=== PATIENT | female | born 1995 | race African-American/Black ===

== ENCOUNTER 2016-11-24 19:27 | Emergency (ER) | payer OTHER ==
[~2016-11-24] VITALS: Ht 160 cm; Wt 123.0 kg
[~2016-11-24 19:27] MED LIST: AMOXICILLIN500 MG PO; CYANOCOBALAM1000 MCG PO; ENDOCET 5-3251 EACH PO; ZITHROMAX Z-PA250 MG PO
[2016-11-24] MEDS ORDERED: REGLAN10 MG PO (23:02)
[2016-11-24] MEDS ORDERED: PERCOCET 5/31 TABLET PO (23:02)
[2016-11-24] MEDS ORDERED: TORADOL10 MG PO (23:02)
[2016-11-24 23:14] VITALS: BP 00/00
== END 2016-11-24 23:20 | disposition home or self-care (01) ==
LOC: EME 19:27
DX: G43.909 Migraine, unspecified, not intractable, without status migrainosus (principal); M54.5 Low back pain; S09.90XA Unspecified injury of head, initial encounter; W10.9XXA Fall (on) (from) unspecified stairs and steps, initial encounter
CPT/HCPCS: 70450; 72100; 99281; 99284

== ENCOUNTER 2017-02-10 19:56 | Emergency (ER) | payer OTHER ==
[~2017-02-10] VITALS: Ht 160 cm; Wt 126.7 kg
[~2017-02-10 19:56] MED LIST changes: +PERCOCET 5/31 TABLET PO; +REGLAN10 MG PO; +TORADOL10 MG PO
[2017-02-10] MEDS ORDERED: FIORICET 50-301 EACH PO (22:43)
[2017-02-10] MEDS ORDERED: ZOFRAN ODT4 MG PO (22:43)
[2017-02-10 22:46] VITALS: BP 144/87
== END 2017-02-10 22:49 | disposition home or self-care (01) ==
LOC: EME 19:56
DX: R51 Headache (principal); Z86.61 Personal history of infections of the central nervous system
CPT/HCPCS: 99281; 99285; J1885

== ENCOUNTER 2017-03-08 14:42 | Emergency (ER) | payer OTHER ==
[~2017-03-08] VITALS: Ht 160 cm; Wt 125.0 kg
[~2017-03-08 14:42] MED LIST changes: +FIORICET 50-301 EACH PO; +ZOFRAN ODT4 MG PO
[2017-03-08 15:10] VITALS: BP 125/82
[2017-03-08] MEDS ORDERED: MOTRIN600 MG PO (16:55)
== END 2017-03-08 17:11 | disposition home or self-care (01) ==
LOC: EME 14:42
DX: M71.332 Other bursal cyst, left wrist (principal)
CPT/HCPCS: 99281; 99284

== ENCOUNTER 2017-04-19 10:06 | Emergency (ER) | payer OTHER ==
[~2017-04-19] VITALS: Ht 160 cm; Wt 126.6 kg
[~2017-04-19 10:06] MED LIST changes: +MOTRIN600 MG PO
[2017-04-19 11:31] LABS: EOSINOPHIL (%) 4.8 % (0-5); EOSINOPHIL COUNT 0.3 K/uL (0-0.3); HEMATOCRIT 39.9 % (36.0-46.0); IMMATURE GRANULOCYTE (%) 0.3 % (0.0-0.7); INSTRUMENT ABS NEUTROPHIL CT 2.3 K/uL; LYMPHOCYTE COUNT 3.9 K/uL (1.0-2.8); MCHC 31.6 G/DL (30.0-36.0); MCV 85.6 FL (83-99); MEAN PLAT.VOLUME 10.8 uM^3 (9.5-12.4); MONOCYTE (%) 5.7 % (3-12); MONOCYTE COUNT 0.4 K/uL (0-0.8); NEUTROPHIL (%) 33.2 % (45-76); NEUTROPHIL COUNT 2.3 K/uL (1.8-6.4); PLATELET COUNT 302 K/uL (156-360); RBC DIS.WIDTH-CV 13.3 % (11.8-14.6); RBC DIS.WIDTH-SD 41.8 % (39-53); RED BLOOD COUNT 4.66 M/uL (3.80-5.20)
[2017-04-19 11:45] LABS: CHLORIDE 108 mEq/L (99-109); POTASSIUM 4.9 mEq/L (3.7-5.4); SODIUM 140 mEq/L (136-147)
[2017-04-19 11:48] LABS: GLUCOSE 103 mg/dL (70-99)
[2017-04-19 11:49] LABS: ANION GAP 7 MEQ/L (2-14); TOTAL BILIRUBIN 0.1 mg/dL (0.0-1.0)
[2017-04-19 11:51] LABS: ALKALINE PHOSPHATASE 91 IU/L (3-129); GFR ESTIMATE (CALCULATED) > 59 mL/min/
[2017-04-19 11:52] LABS: UREA NITROGEN (BUN) 13 mg/dL (9-23)
[2017-04-19 11:55] LABS: LIPASE 22 U/L (1.0-51.0)
[2017-04-19 12:01] LABS: QUANTITATIVE HCG < 4.0 MIU/ML
[2017-04-19] MEDS ORDERED: ZOFRAN4 MG PO (12:57)
[2017-04-19] MEDS ORDERED: BENTYL20 MG PO (12:57)
[2017-04-19 13:18] VITALS: BP 151/104
== END 2017-04-19 13:18 | disposition home or self-care (01) ==
LOC: EME 10:06
PROVIDERS: Emergency Medicine
DX: R10.30 Lower abdominal pain, unspecified (principal); R11.10 Vomiting, unspecified; R19.7 Diarrhea, unspecified; G43.909 Migraine, unspecified, not intractable, without status migrainosus; Z86.61 Personal history of infections of the central nervous system
CPT/HCPCS: 80053; 83690; 84702; 85025; 99281; 99285; J1885; J2405; J7030

== ENCOUNTER 2017-05-11 06:00 | Emergency (ER) | payer OTHER ==
[~2017-05-11] VITALS: Ht 160 cm; Wt 127.6 kg
[~2017-05-11 06:00] MED LIST changes: +BENTYL20 MG PO; +ZOFRAN4 MG PO
[2017-05-11 06:56] LABS: HEMATOCRIT 36.6 % (36.0-46.0); MCHC 33.1 G/DL (30.0-36.0); MCV 84.7 FL (83-99); MEAN PLAT.VOLUME 10.6 uM^3 (9.5-12.4); PLATELET COUNT 252 K/uL (156-360); RBC DIS.WIDTH-CV 13.3 % (11.8-14.6); RBC DIS.WIDTH-SD 41.5 % (39-53); RED BLOOD COUNT 4.32 M/uL (3.80-5.20); WHITE BLOOD COUNT 6.1 K/uL (4.1-10.2)
[2017-05-11 07:26] LABS: ANION GAP 6 MEQ/L (2-14); CHLORIDE 107 MEQ/L (99-109); POTASSIUM 3.8 MEQ/L (3.7-5.4); SAMPLE HEMOLYSIS CHECK 0; SAMPLE ICTERIC CHECK 0; SAMPLE LIPEMIA CHECK 0; SODIUM 139 MEQ/L (136-147)
[2017-05-11 07:29] LABS: QUANTITATIVE HCG < 4.0 MIU/ML
[2017-05-11 07:31] LABS: GFR ESTIMATE (CALCULATED) > 59 mL/min/; GLUCOSE 102 mg/dL (70-99); UREA NITROGEN (BUN) 10 mg/dL (9-23)
[2017-05-11 09:24] VITALS: BP 130/90
== END 2017-05-11 09:30 | disposition home or self-care (01) ==
LOC: EME 06:00
PROVIDERS: Nurse Practitioner Family
DX: N93.9 Abnormal uterine and vaginal bleeding, unspecified (principal); N83.201 Unspecified ovarian cyst, right side; Z88.1 Allergy status to other antibiotic agents
CPT/HCPCS: 76856; 80048; 84702; 85027; 99281; 99285

== ENCOUNTER 2017-07-27 16:35 | Emergency (ER) | payer OTHER ==
[~2017-07-27] VITALS: Ht 160 cm; Wt 128.9 kg
[2017-07-27 20:52] LABS: APPEARANCE CLEAR ((CLEAR)); BILIRUBIN NEGATIVE; BLOOD NEGATIVE; COLOR YELLOW ((YELLOW)); GLUCOSE (STRIP) NEGATIVE; KETONES NEGATIVE; LEUKOCYTES NEGATIVE; NITRITE NEGATIVE; PROTEIN (STRIP) NEGATIVE; SPECIFIC GRAVITY 1.014 (1.000-1.030); UCUL ADDED? NO; UROBILINOGEN 0.2 MG/DL (0.2-1.0)
[2017-07-27 21:18] VITALS: BP 168/98
== END 2017-07-27 21:25 | disposition home or self-care (01) ==
LOC: EME 16:35
PROVIDERS: Physician Assistant Medical
DX: J10.1 Influenza due to other identified influenza virus with other respiratory manifestations (principal)
CPT/HCPCS: 81003; 87502; 99281; 99285

== ENCOUNTER 2018-02-20 15:55 | Emergency (ER) | payer OTHER ==
[~2018-02-20] VITALS: Ht 160 cm; Wt 125.8 kg
[2018-02-20 16:33] LABS: APPEARANCE CLEAR ((CLEAR)); BILIRUBIN NEGATIVE; BLOOD NEGATIVE; COLOR YELLOW ((YELLOW)); GLUCOSE (STRIP) NEGATIVE; KETONES NEGATIVE; LEUKOCYTES SMALL; NITRITE NEGATIVE; PROTEIN (STRIP) NEGATIVE; SPECIFIC GRAVITY 1.025 (1.000-1.030); UROBILINOGEN 0.2 MG/DL (0.2-1.0)
[2018-02-20 16:36] LABS: BACTERIA RARE /HPF; EPITHELIAL CELLS RARE /HPF; MUCUS TRACE /LPF; RED BLOOD CELLS 0-5 /HPF (0-5); WHITE BLOOD CELLS 30-40 /HPF (0-5)
[2018-02-20] MEDS ORDERED: BACTRIM,SEPT1 TABLET PO (16:45)
[2018-02-20 17:07] VITALS: BP 142/81
== END 2018-02-20 16:58 | disposition home or self-care (01) ==
LOC: EME 15:55
PROVIDERS: Nurse Practitioner Family
DX: N39.0 Urinary tract infection, site not specified (principal); G43.909 Migraine, unspecified, not intractable, without status migrainosus; Z88.1 Allergy status to other antibiotic agents
CPT/HCPCS: 81003; 84702; 99281; 99283

== ENCOUNTER 2018-02-23 23:01 | Emergency (ER) | payer OTHER ==
[~2018-02-23] VITALS: Ht 157.5 cm; Wt 126.5 kg
[~2018-02-23 23:01] MED LIST changes: +BACTRIM,SEPT1 TABLET PO
[2018-02-23 23:33] LABS: HEMATOCRIT 36.1 % (36.0-46.0); HEMOGLOBIN 11.9 G/DL (11.9-15.5); MCH 27.5 PG (29.0-34.0); MCV 83.4 FL (83-99); PLATELET COUNT 272 K/uL (156-360); RBC DIS.WIDTH-CV 13.4 % (11.8-14.6); RBC DIS.WIDTH-SD 41.3 % (39-53); RED BLOOD COUNT 4.33 M/uL (3.80-5.20); WHITE BLOOD COUNT 8.3 K/uL (4.1-10.2)
[2018-02-23 23:40] LABS: CHLORIDE 106 mEq/L (99-109); POTASSIUM 3.6 mEq/L (3.7-5.4); SODIUM 137 mEq/L (136-147)
[2018-02-23 23:42] LABS: GLUCOSE 139 mg/dL (70-99); TOTAL PROTEIN 7.4 g/dL (6.4-8.3)
[2018-02-23 23:44] LABS: TOTAL BILIRUBIN 0.2 mg/dL (0.0-1.0)
[2018-02-23 23:46] LABS: ALKALINE PHOSPHATASE 66 IU/L (3-129); CREATININE 0.7 mg/dL (0.6-1.3); GFR ESTIMATE (CALCULATED) > 59 mL/min/
[2018-02-23 23:47] LABS: UREA NITROGEN (BUN) 10 mg/dL (9-23)
[2018-02-23 23:48] LABS: AST (GOT) 15 IU/L (2-34)
[2018-02-23 23:49] LABS: ALT (GPT) 21 IU/L (3-49)
[2018-02-23 23:56] LABS: QUANTITATIVE HCG < 4.0 MIU/ML
[2018-02-24 00:08] LABS: APPEARANCE SL.HAZY ((CLEAR)); BILIRUBIN NEGATIVE; BLOOD NEGATIVE; COLOR YELLOW ((YELLOW)); GLUCOSE (STRIP) NEGATIVE; KETONES NEGATIVE; LEUKOCYTES SMALL; NITRITE NEGATIVE; PROTEIN (STRIP) 30; SPECIFIC GRAVITY 1.027 (1.000-1.030)
[2018-02-24 00:16] LABS: BACTERIA RARE /HPF; EPITHELIAL CELLS 3+ /HPF; MUCUS TRACE /LPF; RED BLOOD CELLS 0-5 /HPF (0-5); UCUL ADDED? YES; WHITE BLOOD CELLS 15-20 /HPF (0-5)
[2018-02-24] MEDS ORDERED: CIPRO500 MG PO (00:45)
[2018-02-24] MEDS ORDERED: ZOFRAN ODT4 MG PO (00:47)
[2018-02-24 01:13] VITALS: BP 142/96
[2018-02-25] MEDS ORDERED: CIPRO500 MG PO (23:48)
[2018-02-25] MEDS ORDERED: METFORMIN HCL500 MG PO (23:49)
[2018-02-25] MEDS ORDERED: ZOFRAN ODT4 MG PO (23:49)
[2018-02-25] MEDS ORDERED: FLUOXETINE HCL20 MG PO (23:49)
[2018-02-26] MEDS ORDERED: INDERAL10 MG PO (09:04)
== END 2018-02-24 01:13 | disposition home or self-care (01) ==
LOC: EME 23:01
DX: R11.10 Vomiting, unspecified (principal); R19.7 Diarrhea, unspecified; T37.0X5A Adverse effect of sulfonamides, initial encounter; N39.0 Urinary tract infection, site not specified; F41.9 Anxiety disorder, unspecified; G43.909 Migraine, unspecified, not intractable, without status migrainosus; Z88.1 Allergy status to other antibiotic agents; Z87.440 Personal history of urinary (tract) infections
CPT/HCPCS: 80053; 81003; 84702; 85027; 87086; 99281; 99284

== ENCOUNTER 2018-02-24 14:15 | Emergency (ER) | payer OTHER ==
[~2018-02-24] VITALS: Ht 157.5 cm; Wt 127.2 kg
[~2018-02-24 14:15] MED LIST changes: +CIPRO500 MG PO
[2018-02-24 17:26] VITALS: BP 138/92
[2018-02-25] MEDS ORDERED: CIPRO500 MG PO (23:48)
[2018-02-25] MEDS ORDERED: ZOFRAN ODT4 MG PO (23:49)
[2018-02-25] MEDS ORDERED: FLUOXETINE HCL20 MG PO (23:49)
[2018-02-25] MEDS ORDERED: METFORMIN HCL500 MG PO (23:49)
[2018-02-26] MEDS ORDERED: INDERAL10 MG PO (09:04)
== END 2018-02-24 17:29 | disposition home or self-care (01) ==
LOC: EME 14:15
DX: F41.0 Panic disorder [episodic paroxysmal anxiety] (principal)
CPT/HCPCS: 90839; 99281; 99283; Q0177

== ENCOUNTER 2018-02-26 20:46 | Emergency (ER) | payer OTHER ==
[~2018-02-26] VITALS: Ht 160 cm; Wt 125.0 kg
[~2018-02-26 20:46] MED LIST changes: +FLUOXETINE HCL20 MG PO; +INDERAL10 MG PO; +METFORMIN HCL500 MG PO
[2018-02-26 22:45] LABS: HEMATOCRIT 34.2 % (36.0-46.0); HEMOGLOBIN 11.3 G/DL (11.9-15.5); MCH 27.6 PG (29.0-34.0); MCV 83.6 FL (83-99); PLATELET COUNT 297 K/uL (156-360); RBC DIS.WIDTH-CV 13.5 % (11.8-14.6); RBC DIS.WIDTH-SD 41.4 % (39-53); RED BLOOD COUNT 4.09 M/uL (3.80-5.20); WHITE BLOOD COUNT 9.3 K/uL (4.1-10.2)
[2018-02-26 22:54] LABS: CHLORIDE 108 mEq/L (99-109); SODIUM 139 mEq/L (136-147)
[2018-02-26 22:55] LABS: POTASSIUM 3.6 mEq/L (3.7-5.4)
[2018-02-26 22:56] LABS: GLUCOSE 117 mg/dL (70-99)
[2018-02-26 22:58] LABS: D-DIMER ELISA < 150.00 ng/mLDDU (<230)
[2018-02-26 22:59] LABS: CREATININE 0.8 mg/dL (0.6-1.3); GFR ESTIMATE (CALCULATED) > 59 mL/min/
[2018-02-26 23:00] LABS: UREA NITROGEN (BUN) 10 mg/dL (9-23)
[2018-02-26 23:07] LABS: TROP-I INTERPRETATION NEGATIVE; TROPONIN-I < 0.01 ng/mL (0.0-0.30)
[2018-02-27 01:06] LABS: TROP-I INTERPRETATION NEGATIVE; TROPONIN-I < 0.01 ng/mL (0.0-0.30)
[2018-02-27] MEDS ORDERED: TYLENOL WITH C1 EACH PO (01:10)
[2018-02-27 01:21] VITALS: BP 162/88
== END 2018-02-27 01:22 | disposition home or self-care (01) ==
LOC: EME 20:46
PROVIDERS: Emergency Medicine
DX: R07.9 Chest pain, unspecified (principal); Z87.891 Personal history of nicotine dependence; Z82.49 Family history of ischemic heart disease and other diseases of the circulatory system; Z83.3 Family history of diabetes mellitus
CPT/HCPCS: 71046; 80048; 84484; 85027; 85379; 93005; 99281; 99285

== ENCOUNTER 2018-02-27 18:11 | Emergency (ER) | payer OTHER ==
[~2018-02-27] VITALS: Ht 160 cm; Wt 123.2 kg
[~2018-02-27 18:11] MED LIST changes: +TYLENOL WITH C1 EACH PO
[2018-02-27 19:12] LABS: HEMATOCRIT 35.1 % (36.0-46.0); HEMOGLOBIN 11.8 G/DL (11.9-15.5); MCHC 33.6 G/DL (30.0-36.0); MCV 83.2 FL (83-99); PLATELET COUNT 276 K/uL (156-360); RBC DIS.WIDTH-CV 13.4 % (11.8-14.6); RBC DIS.WIDTH-SD 40.6 % (39-53); RED BLOOD COUNT 4.22 M/uL (3.80-5.20); WHITE BLOOD COUNT 8.7 K/uL (4.1-10.2)
[2018-02-27 19:25] LABS: CHLORIDE 104 mEq/L (99-109); POTASSIUM 4.1 mEq/L (3.7-5.4); SODIUM 139 mEq/L (136-147)
[2018-02-27 19:27] LABS: GLUCOSE 104 mg/dL (70-99)
[2018-02-27 19:31] LABS: CREATININE 0.8 mg/dL (0.6-1.3); GFR ESTIMATE (CALCULATED) > 59 mL/min/
[2018-02-27 19:32] LABS: UREA NITROGEN (BUN) 9 mg/dL (9-23)
[2018-02-27 19:40] LABS: QUANTITATIVE HCG < 4.0 MIU/ML
[2018-02-27 20:18] VITALS: BP 140/92
== END 2018-02-27 20:19 | disposition home or self-care (01) ==
LOC: EME 18:11
PROVIDERS: Nurse Practitioner Family
DX: F41.9 Anxiety disorder, unspecified (principal); F43.0 Acute stress reaction; R55 Syncope and collapse; R51 Headache; E11.9 Type 2 diabetes mellitus without complications; Z79.84 Long term (current) use of oral hypoglycemic drugs; Z87.891 Personal history of nicotine dependence
CPT/HCPCS: 80048; 84702; 85027; 99281; 99284